=== PATIENT | male | born 1995 | race Caucasian/White ===

== ENCOUNTER 2024-09-19 11:18 | Emergency (ER) | payer MEDICAID, SELFPAY ==
[2024-09-19 11:35] VITALS: BP 131/87; PULSE 57; RESP 18; TEMP 36.8; O2SAT 96; BMI 32.3
--- NOTE | 2024-09-19 12:07 | EDNOTE_ITS ---
ED Eye Problem RME/HPI General Chief complaint: Eye Problems Stated complaint: LEFT EYE PAIN S/P GETTING POKED BY SOMETHING Time Seen by Provider: 09/19/24 11:49 Arrival date/time: 09/19/24 11:18 This is a 29-year-old male that comes into the emergency room with complaints of left eye pain. Patient states that he was playing with some of his buddies and he thinks he poked his eye accidentally. Patient states he woke up with his left eye red and he sensitive to light. Related Data Previous Rx's ?Medication ?Instructions ?Recorded Hydrocodone/Acetaminophen * (NORCO 1 tab PO Q6H PRN PA IN #10 tabs 06/19/16 5/325 *) ibuprofen 600 mg tablet 600 mg PO Q6HR PRN PAIN #30 tabs 06/19/16 Dicyclomine Hcl * (BENTYL *) 20 mg PO QID PRN abdomina l pains 11/28/16 #30 tabs hydrocodone 5 mg-acetaminophen 325 1 tab PO BID PRN pa in #8 tabs 12/25/22 mg tablet ibuprofen 600 mg tablet 600 mg PO TID PRN pain #30 t abs 04/24/23 naproxen 500 mg tablet 500 mg PO BID #30 tabs erythromycin 5 mg/gram (0.5 %) eye 0.5 inch ophthalmic (eye) QID left 09/19/24 ointment eye #3.5 grams ibuprofen 800 mg tablet 800 mg PO Q6H PRN pain #10 t abs 09/19/24 Allergies Allergy/AdvReac Type Severity Reaction Status Date / Time No Known Allergies Allergy Verified 09/19/24 11:20 Course Orders Category Date Time Status Sandy Lamp to Bedside X1 Care 09/19/24 12:07 Completed Fluorescein Sodium [[id number]] Med 09/19/24 12:07 Discontinued 1 mg LEFT EYE X1 ONE Ibuprofen Tab [Motrin Tab] Med 09/19/24 12:08 Discontinued 800 mg PO X1 ONE TETRACAINE Op Zena 0.5% [Pontocaine Op Zena 0.5%] Med 09/19/24 12:07 Discontinued 1 drop LEFT EYE X1 ONE Vital Signs Vital signs: Vital Signs Temperature 98.2 F 09/19/24 11:35 Pulse Rate 57 L 09/19/24 11:35 Respiratory Rate 18 05/04/25 11:35 Blood Pressure 131/87 H 09/19/24 11:35 Pulse Oximetry (%) 96 09/19/24 11:35 Oxygen Delivery Method Room Air 09/19/24 11:35 Procedures -ED Sandy Lamp Exam Left eye: Flourescein uptake:: Yes Sandy Lamp Findings: Corneal abrasion (9 o clock position, not on iris of eye, small 1mm area very small barely noticible ) Eye MDM Narrative MDM Narrative:: Medications / Prescriptions Medication administrations:: Medication Administration History Discontinued Medications Fluorescein Sodium (Fluorescein Sod 1 Mg Strp) 1 mg LEFT EYE X1 ONE Stop: 09/19/24 12:08 Last Admin: 09/19/24 13:10 Dose: 1 mg Documented By: ZAIDA Ibuprofen (Ibuprofen Tab 400 Mg Tablet) 800 mg PO X1 ONE Stop: 09/19/24 12:09 Last Admin: 09/19/24 12:18 Dose: 800 mg Documented By: ZAIDA Tetracaine HCl (Tetracaine Pf Op Zena 0.5% 4 Ml Drpette) 1 drop LEFT EYE X1 ONE Stop: 09/19/24 12:08 Last Admin: 09/19/24 13:10 Dose: 1 drop Documented By: ZAIDA Discharge Plan Plan Patient Disposition: HOME (Self Care) Patient condition on transfer: Stable Prescriptions/Referrals Prescriptions/Med Rec: New erythromycin 5 mg/gram (0.5 %) ointment 0.5 inch ophthalmic (eye) QID Qty: 3.5 0RF ibuprofen 800 mg tablet 800 mg PO Q6H PRN (Reason: pain) Qty: 10 0RF No Action ibuprofen 600 MG tablet 600 mg PO Q6HR PRN (Reason: PAIN) Qty: 30 0RF Hydrocodone/Acetaminophen * (NORCO 5/325 *) 1 TAB tablet 1 tab PO Q6H PRN (Reason: PAIN) Qty: 10 0RF Dicyclomine Hcl * (BENTYL *) 20 MG tablet 20 mg PO QID PRN (Reason: abdominal pains) Qty: 30 0RF hydrocodone-acetaminophen 5-325 mg tablet 1 tab PO BID MDD 10 PRN (Reason: pain) Qty: 8 0RF ibuprofen 600 mg tablet 600 mg PO TID PRN (Reason: pain) Qty: 30 0RF naproxen 500 mg tablet 500 mg PO BID Qty: 30 0RF Referrals: Stefanie Solis PA-C [Primary Care Provider] - In 1 week Problem List Clinical Impression: Abrasion, corneal Patient/Caregiver Discharge Instructions Discharge Activity: activity as tolerated Education Materials: ED Corneal Abrasion Additional Instructions: Follow up with primary provider in 1-2 days. Come back to ED if symptoms change or worsen. Please make an appointment with eye doctor in 1 to 2 days. Print Language: Tajik Stand Alone Forms: Luisa Award Info., Patient Portal Info Letter PA/REPLENISHMENT SPECIALIST Supervising Physician PA/REPLENISHMENT SPECIALIST Supervising Physician: juana
[2024-09-19] MEDS: IBUPROFEN TAB 400 MG TABLET 800 MG PO (12:18)
[2024-09-19] MEDS: TETRACAINE PF OP SOL 0.5% 4 ML DRPETTE 1 DROP LEFT EYE (13:10)
[2024-09-19] MEDS: FLUORESCEIN SOD 1 MG STRP LEFT EYE (13:10)
== END 2024-09-19 13:36 | disposition home or self-care (01) ==
PROVIDERS: Emergency Provider Emergency Medicine; PCP Physician Assistant Medical
DX: S05.02XA Injury of conjunctiva and corneal abrasion without foreign body, left eye, initial encounter (principal); X58.XXXA Exposure to other specified factors, initial encounter
CPT/HCPCS: 99283; A9270